=== PATIENT | female | born 1965 | race Two or more races ===

== ENCOUNTER 2023-05-21 11:00 | Inpatient (IN) | payer OTHER ==
[~2023-05-21] VITALS: Ht 162.6 cm; Wt 103.0 kg
[2023-05-28] MEDS ORDERED: SYNTHROID150 MCG PO (11:10)
[2023-05-28] MEDS ORDERED: TENORMIN25 MG PO (11:10)
[2023-05-28] MEDS ORDERED: METFORMIN HCL500 M3 PO (11:10)
[2023-05-28] MEDS ORDERED: ZESTRIL2.5 MG PO (11:10)
[2023-05-28] MEDS ORDERED: CRESTOR10 MG PO (11:11)
[2023-06-02] MEDS ORDERED: METRONIDAZOLE/SODIUM CHLORIDE 500 MG/100 ML PIGGYBACK IV ONE ×2 (12:23→17:15)
[2023-06-02] MEDS ORDERED: levoFLOXacin IN DEXTROSE 5 % 5 MG/ML PIGGYBAG IV ONE ×2 (12:24→17:15)
[2023-06-02] MEDS ORDERED: PANTOPRAZOLE SO40 MG (15:53)
[2023-06-02] MEDS ORDERED: SYNTHROID175 MCG (15:53)
[2023-06-02] MEDS ORDERED: OMEGA-3 ACID ETH1 GM (15:53)
[2023-06-02] MEDS ORDERED: SUGAMMADEX SODIUM 200 MG/2 ML VIAL IV ONE ×2 (18:08→18:45)
[2023-06-02] MEDS ORDERED: ONDANSETRON HCL 2 MG/ML VIAL IV PRN (18:15)
[2023-06-02] MEDS ORDERED: OxyCODONE HCL 5 MG TABLET (ROXICODONE) PO PRN (18:15)
[2023-06-02] MEDS ORDERED: RINGERS SOLUTION,LACTATED 1,000 ML IV SCH (18:15)
[2023-06-02] MEDS ORDERED: MORPHINE SULFATE 4 MG/ML CARTRIDGE IV PRN (18:15)
[2023-06-02] MEDS ORDERED: ACETAMINOPHEN 500 MG GEL..CAP PO SCH (20:00)
[2023-06-02] MEDS ORDERED: SIMETHICONE 125 MG CAPSULE PO SCH (21:00)
[2023-06-02] MEDS ORDERED: FAMOTIDINE/PF 20 MG/2 ML VIAL IV PUSH SCH (21:00)
[2023-06-02] MEDS ORDERED: FAMOTIDINE/PF 20 MG/2 ML VIAL ONE (21:17)
[2023-06-03 00:27] LABS: HEMATOCRIT 40.6 % (36.0-45.00); HEMOGLOBIN 13.1 g/dL (12.0-15.00); MEAN CELL VOLUME 89.8 fL (80.00-100.00); MEAN CORPUSCULAR HEMOGLOBIN 28.9 pg (27.00-32.0); MEAN CORPUSCULAR HGB CONC 32.2 g/dl (32.0-36.0); RED BLOOD COUNT 4.52 M/uL (4.00-6.00); RED CELL DISTRIBUTION WIDTH 14.6 % (11.5-14.5)
[2023-06-03 00:29] LABS: PLATELET COUNT 118 K/uL (150-450)
[2023-06-03] MEDS ORDERED: GABAPENTIN 300 MG CAPSULE PO SCH (01:00)
[2023-06-03] MEDS ORDERED: METOCLOPRAMIDE HCL 5 MG/ML VIAL IV SCH (01:00)
[2023-06-03] MEDS ORDERED: DEXTROSE 50 % IN WATER 0.5 G/ML DISP.SYRIN IV PRN (04:15)
[2023-06-03] MEDS ORDERED: INSULIN LISPRO 1,000 UNIT/10 ML UNITS SUBCUTANEO PRN (04:15)
[2023-06-03] MEDS ORDERED: ENALAPRILAT DIHYDRATE 1.25 MG/ML VIAL IV PRN (04:30)
[2023-06-03] MEDS ORDERED: CELECOXIB 200 MG CAPSULE PO SCH (05:00)
[2023-06-03] MEDS ORDERED: LEVOTHYROXINE SODIUM 150 MCG TABLET PO ONE (05:54)
[2023-06-03] MEDS ORDERED: LEVOTHYROXINE SODIUM 175 MCG TABLET PO ONE (05:54)
[2023-06-03] MEDS ORDERED: SYNTHROID 150 MCG PO SCH (06:00)
[2023-06-03] MEDS ORDERED: SYNTHROID 175 MCG PO SCH (06:00)
[2023-06-03 06:31] LABS: ALBUMIN 3.2 gm/dL (3.4-5.0); CALCIUM 8.9 mg/dL (8.5-10.1); CREATININE SERUM 0.84 mg/dL (0.55-1.02); GFR 70.14; MAGNESIUM 2.2 mg/dL (1.8-2.4); PHOSPHOROUS 4.3 mg/dL (2.5-4.9)
[2023-06-03 06:52] LABS: POTASSIUM 6.05 mEq/L (3.5-5.1)
[2023-06-03 06:52] LABS: ABG PH 7.369 (7.35-7.45); ABG PO2 75.2 mmHg (80-100); ABG pCO2 40.7 mmHg (35-45); BASE EXCESS -2.2 mmol/l; BICARBONATE 22.9 mmol/l (23-25); SaO2 94.3 %; Tco2 24.2 mmol/l; allen test SATISFACTORY; o2 21 %; puncture site RADIAL RIGHT
[2023-06-03] MEDS ORDERED: ATENOLOL 25 MG TABLET PO SCH (09:00)
[2023-06-03] MEDS ORDERED: HYOSCYAMINE SULFATE 0.125 MG TAB.SUBL SL SCH (09:00)
[2023-06-03] MEDS ORDERED: LACTOBACILLUS ACIDOPHILUS 1 CAP CAP PO SCH (09:00)
[2023-06-03] MEDS ORDERED: LACTULOSE 20 G/30 ML BLIST.PACK PO SCH (09:00)
[2023-06-03 13:00] LABS: PH,URINE 5.5 (5.0-8.0); URINE APPEARANCE Clear; URINE BACTERIA 36.5 uL (0.0-1933); URINE BILIRRUBIN Negative (NEGATIVE); URINE BLOOD Small; URINE COLOR Yellow; URINE EPITHELIAL CELLS 27.8 uL (0.0-38.8); URINE GLUCOSE Negative (NEGATIVE); URINE LEUKOCYTE Moderate; URINE NITRATE Negative; URINE PROTEIN Negative (NEGATIVE); URINE RBC 8.7 uL (0.0-20.8); URINE UROBILINOGEN 0.2 E.U./dl; URINE WBC 149.9 uL (0.0-23.2)
[2023-06-03 15:25] LABS: HEMATOCRIT 35.6 % (36.0-45.00); HEMOGLOBIN 11.8 g/dL (12.0-15.00); MEAN CELL VOLUME 88.1 fL (80.00-100.00); MEAN CORPUSCULAR HEMOGLOBIN 29.4 pg (27.00-32.0); MEAN CORPUSCULAR HGB CONC 33.3 g/dl (32.0-36.0); RED BLOOD COUNT 4.04 M/uL (4.00-6.00); RED CELL DISTRIBUTION WIDTH 14.2 % (11.5-14.5)
[2023-06-03 15:26] LABS: PLATELET COUNT 115 K/uL (150-450)
[2023-06-03 15:53] LABS: CALCIUM 8.8 mg/dL (8.5-10.1); CREATININE SERUM 0.92 mg/dL (0.55-1.02); GFR 63.15; POTASSIUM 4.04 mEq/L (3.5-5.1)
[2023-06-03] MEDS ORDERED: POLYETHYLENE GLYCOL 3350 17 GM BLIST.PACK PO SCH (17:00)
[2023-06-03] MEDS ORDERED: ENOXAPARIN SODIUM 40 MG/0.4 ML SYRINGE SUBCUTANEO SCH (17:00)
[2023-06-03] MEDS ORDERED: PATIENTS OWN MEDICATION (MEDICAMENTO EN PISO) PO SCH (17:00)
[2023-06-03] MEDS ORDERED: LISINOPRIL 2.5 MG TABLET PO SCH (21:00)
[2023-06-04] MEDS ORDERED: PATIENTS OWN MEDICATION (MEDICAMENTO EN PISO) PO SCH (06:00)
[2023-06-04 07:18] LABS: HEMATOCRIT 33.3 % (36.0-45.00); HEMOGLOBIN 11.1 g/dL (12.0-15.00); MEAN CORPUSCULAR HEMOGLOBIN 29.7 pg (27.00-32.0); MEAN CORPUSCULAR HGB CONC 33.3 g/dl (32.0-36.0); RED BLOOD COUNT 3.74 M/uL (4.00-6.00); RED CELL DISTRIBUTION WIDTH 14.3 % (11.5-14.5)
[2023-06-04 07:19] LABS: PLATELET COUNT 93 K/uL (150-450)
[2023-06-04 07:47] LABS: CALCIUM 8.1 mg/dL (8.5-10.1); CREATININE SERUM 0.78 mg/dL (0.55-1.02); GFR 76.4; MAGNESIUM 1.8 mg/dL (1.8-2.4); PHOSPHOROUS 2.5 mg/dL (2.5-4.9); POTASSIUM 3.77 mEq/L (3.5-5.1)
[2023-06-04] MEDS ORDERED: ENOXAPARIN SODIUM 40 MG/0.4 ML SYRINGE SUBCUTANEO SCH (09:00)
[2023-06-06] MEDS ORDERED: PATIENTS OWN MEDICATION (MEDICAMENTO EN PISO) PO SCH (06:00)
== END 2023-06-05 12:10 | disposition home or self-care (01) | DRG 330 ==
LOC: O/R 06-02 10:10 → SURH 06-02 11:00 → SURG 06-02 19:21
PROVIDERS: Internal Medicine Geriatric Medicine; ADMIT Colon & Rectal Surgery; ATTEND Colon & Rectal Surgery
PROC: 0DBP4ZZ Excision of Rectum, Percutaneous Endoscopic Approach (ICD-10-PCS; 2023-06-02)
PROC: 0DJD8ZZ Inspection of Lower Intestinal Tract, Via Natural or Artificial Opening Endoscopic (ICD-10-PCS; 2023-06-02)
PROC: 02HV33Z Insertion of Infusion Device into Superior Vena Cava, Percutaneous Approach (ICD-10-PCS; 2023-06-02)
PROC: 0DTN4ZZ Resection of Sigmoid Colon, Percutaneous Endoscopic Approach (ICD-10-PCS; principal; 2023-06-02 15:30)
DX: K57.32 Diverticulitis of large intestine without perforation or abscess without bleeding (principal); K92.1 Melena; E87.5 Hyperkalemia; E03.9 Hypothyroidism, unspecified; G47.30 Sleep apnea, unspecified; K66.0 Peritoneal adhesions (postprocedural) (postinfection)

== ENCOUNTER 2024-07-16 16:23 | Emergency (ER) | payer OTHER ==
[~2024-07-16] VITALS: Ht 165.1 cm; Wt 104.3 kg
[~2024-07-16 16:23] MED LIST: CRESTOR10 MG PO; METFORMIN HCL500 M3 PO; OMEGA-3 ACID ETH1 GM; PANTOPRAZOLE SO40 MG; SYNTHROID150 MCG PO; SYNTHROID175 MCG; TENORMIN25 MG PO; ZESTRIL2.5 MG PO
[2024-07-16] MEDS ORDERED: ONDANSETRON HCL 2 MG/ML VIAL IV ONE ×2 (17:15→23:30)
[2024-07-16] MEDS ORDERED: 0.9 % SODIUM CHLORIDE 500 ML IV ONE (17:15)
[2024-07-16] MEDS ORDERED: FAMOTIDINE/PF 20 MG/2 ML VIAL IV ONE (17:15)
[2024-07-16] MEDS ORDERED: FAMOTIDINE/PF 20 MG/2 ML VIAL ONE (17:20)
[2024-07-16] MEDS ORDERED: ONDANSETRON HCL 2 MG/ML VIAL ONE (17:20)
[2024-07-16 18:25] LABS: HEMATOCRIT 42.7 % (36.0-45.00); HEMOGLOBIN 14.1 g/dL (12.0-15.00); MEAN CELL VOLUME 90.3 fL (80.00-100.00); MEAN CORPUSCULAR HEMOGLOBIN 29.9 pg (27.00-32.0); MEAN CORPUSCULAR HGB CONC 33.1 g/dl (32.0-36.0); PLATELET COUNT 148 K/uL (150-450); RED BLOOD COUNT 4.73 M/uL (4.00-6.00)
[2024-07-16 18:30] LABS: PH,URINE 5.5 (5.0-8.0); URINE APPEARANCE Clear; URINE BILIRRUBIN Negative (NEGATIVE); URINE BLOOD Small; URINE COLOR Dark Yellow; URINE GLUCOSE Negative (NEGATIVE); URINE KETONE 15 (NEGATIVE); URINE LEUKOCYTE Small; URINE NITRATE Negative; URINE PROTEIN Trace (NEGATIVE); URINE UROBILINOGEN 0.2 E.U./dl
[2024-07-16 18:34] LABS: URINE BACTERIA 37.9 uL (0.0-1933); URINE CAST 4.71 uL (0.0-1.40); URINE EPITHELIAL CELLS 31.8 uL (0.0-38.8); URINE RBC 28.1 uL (0.0-20.8); URINE WBC 27.5 uL (0.0-23.2)
[2024-07-16 19:23] LABS: ALBUMIN 3.3 gm/dL (3.4-5.0); BILIRUBIN TOTAL 0.77 mg/dL (0.3-1.2); CALCIUM 8.6 mg/dL (8.5-10.1); CREATININE SERUM 1.11 mg/dL (0.55-1.02); GFR 50.66; GLOBULINA 4.4 G/DL (2.4-3.5); TOTAL PROTEIN 7.7 gm/dL (6.4-8.2)
[2024-07-16 20:10] LABS: POTASSIUM 2.99 mEq/L (3.5-5.1)
[2024-07-16] MEDS ORDERED: POTASSIUM BICARBONATE/CIT AC 25 MEQ TABLET.EFF PO ONE (22:45)
[2024-07-16] MEDS ORDERED: KETOROLAC TROMETHAMINE 30 MG VIAL IV ONE (22:45)
[2024-07-16] MEDS ORDERED: CIPRO500 MG PO (23:09)
[2024-07-16] MEDS ORDERED: MORPHINE SULFATE 2 MG/ML SYRINGE IV ONE (23:15)
[2024-07-16] MEDS ORDERED: METHYLPREDNISOLONE SOD SUCC 125 MG VIAL IV ONE (23:15)
[2024-07-17] MEDS ORDERED: ONDANSETRON HCL 2 MG/ML VIAL ONE (00:01)
[2024-07-17] MEDS ORDERED: METHYLPREDNISOLONE SOD SUCC 125 MG VIAL ONE (00:02)
[2024-07-17] MEDS ORDERED: MORPHINE SULFATE 4 MG/ML VIAL IV ONE (01:45)
== END 2024-07-17 03:00 ==
LOC: ER 16:24
PROVIDERS: General Practice
DX: K62.89 Other specified diseases of anus and rectum (principal); R10.9 Unspecified abdominal pain; E03.8 Other specified hypothyroidism; E11.9 Type 2 diabetes mellitus without complications; Z79.84 Long term (current) use of oral hypoglycemic drugs; Z88.0 Allergy status to penicillin; Z91.013 Allergy to seafood
CPT/HCPCS: 36415; 74177; 96365; 96366; 99284; J2270 ×2; J2405 ×2; J3490 ×2; J7042; Q9965